=== PATIENT | male | born 1975 | race Caucasian/White ===

== ENCOUNTER 2016-12-07 08:29 | Emergency (ER) | payer BC, OTHER ==
[2016-12-07 08:56] VITALS: BP 127/85
[2016-12-07] MEDS ORDERED: Lidocaine/EPINEPHrine/Tetracaine Soln 1 ML TOP STA (09:39)
[2016-12-07] MEDS ORDERED: Lidocaine 1% with EPINEPHrine 1:100,000 20 ML MDV INJECT ONE (09:39)
[2016-12-07] MEDS ORDERED: Bupivacaine 0.5% 10 ML SDV INJECT ONE (09:40)
[2016-12-07] MEDS ORDERED: Diphtheria,Pertussis(Acell),Tetanus Vaccine 0.5 ML SDV IM ONE (09:40)
--- NOTE | 2016-12-07 10:21 | EDM.PDOC ---
ED HPI GENERAL MEDICAL PROBLEM - General Chief Complaint: Laceration Stated Complaint: LT ARM LAC Time Seen by Provider: 12/07/16 09:28 Source of Information: Reports: Patient, RN Notes Reviewed History Limitations: Reports: No Limitations - History of Present Illness INITIAL COMMENTS - FREE TEXT/NARRATIVE: The patient states that the edge of a piece of metal fell onto his left forearm while at work, around 08:30 this morning. He presents with an approximately 2.5 cm linear laceration to his mid-left forearm, over the radius, as well as an abrasion adjacent to it. He complains of pain and tenderness to this area. He is otherwise uninjured. The patient does not recall when his last tetanus vaccination was. The patient's PCP is Natalia Masterson. Left Arm Pain Score (Numeric/FACES): 7 - Related Data Allergies Allergy/AdvReac Type Severity Reaction Status Date / Time No Known Allergies Allergy Verified 12/07/16 08:45 Home Meds: Home Meds . [No Known Home Meds] 12/07/16 [History] Past Medical History Musculoskeletal History: Reports: Gout (suspected, not diagnosed) Psychiatric History: Reports: Depression - Past Surgical History HEENT Surgical History: Reports: Tonsillectomy Social & Family History - Tobacco Use Smoking Status *Q: Never Smoker - Caffeine Use Caffeine Use: Reports: Coffee - Alcohol Use Alcohol Use History: Yes Alcohol Use Frequency: Socially - Recreational Drug Use Recreational Drug Use: No - Living Situation & Occupation Living situation: Reports: , with Family, Other (friends) Occupation: Employed (Records Section Supervisor) ED ROS GENERAL - Review of Systems Review Of Systems: See Below Constitutional: Reports: No Symptoms HEENT: Reports: No Symptoms Respiratory: Reports: No Symptoms Cardiovascular: Reports: No Symptoms Endocrine: Reports: No Symptoms GI/Abdominal: Reports: No Symptoms : Reports: No Symptoms Musculoskeletal: Reports: No Symptoms Skin: Reports: No Symptoms Neurological: Reports: No Symptoms Psychiatric: Reports: No Symptoms Hematologic/Lymphatic: Reports: No Symptoms Immunologic: Reports: No Symptoms ED EXAM, SKIN/RASH Exam: See Below Exam Limited By: No Limitations General Appearance: Alert, WD/WN, No Apparent Distress Extremities: Normal Range of Motion, Normal Capillary Refill, Other ( Approximately 2.5 cm linear laceration to the mid-left forearm, over the radius , with an adjacent abrasion. Minimal swelling to the area. No visible ecchymosis. Neurovascular status of the left upper extremity is intact.) Psychiatric: Normal Affect Skin: Warm, Dry, Normal Color, No Rash ED SKIN PROCEDURES - Laceration/Wound Repair Left Arm Lac/Wound length In cm: 2.5 Appearance: Subcutaneous, Linear, Clean Distal NVT: Neuro & Vascular Intact, No Tendon Injury Anesthetic Type: Topical (LET) Skin Prep: Providone-Iodine (Betadine) Exploration/Debridement/Repair: Wound Explored, In a Bloodless Field, Explored to Base, No Foreign Material Found, Wound Margins Revised Closed with: Sutures Suture Size: 3-0 # of Sutures: 6 Suture Type: Nylon, Running, Simple Sterile Dressing Applied: None Tetanus Status Addressed: Yes Complications: No Course - Vital Signs Last Recorded V/S: Last Vital Signs Temp 35.7 C 12/07/16 08:46 Pulse 64 12/07/16 08:46 Resp 18 12/07/16 08:46 BP 127/85 12/07/16 08:46 Pulse Ox 98 12/07/16 08:46 - Orders/Labs/Meds Orders: Active Orders 24 hr Category Date Time Status Vaccines to be Administered [RC] PER UNIT ROUTINE Care 12/07/16 09:40 Active Meds: Medications Discontinued Medications Generic Name Dose Route Start Last Admin Trade Name Annie PRN Reason Stop Dose Admin Bupivacaine HCl 10 ml 12/07/16 09:40 12/07/16 13:50 Sensorcaine-Mpf 0.5% INJECT 12/07/16 09:41 Not Given ONETIME ONE Diphtheria/Tetanus/Acell Pertussis 0.5 ml 12/07/16 09:40 12/07/16 09:50 Adacel IM 12/07/16 09:41 0.5 ml .ONCE ONE Administration Lidocaine/Epinephrine 20 ml 12/07/16 09:39 12/07/16 13:50 Xylocaine 1% With Epinephrine 1:100,000 INJECT 12/07/16 09:40 Not Given ONETIME ONE Lidocaine/Tetracaine 2 ml 12/07/16 09:39 12/07/16 09:49 Let Soln TOP 12/07/16 09:40 2 ml ONETIME STA Administration - Re-Assessments/Exams Free Text/Narrative Re-Assessment/Exam: 12/07/16 10:19 2-view radiographs of the left forearm appear to be unremarkable. No fracture or dislocation identified. Formal read per the Radiologist pending. 12/07/16 13:23 The patient's wound was closed with 6 running sutures. He was given a tetanus vaccination. Departure - Departure Time of Disposition: 13:23 Disposition: Home, Self-Care 01 Condition: Good Clinical Impression: Laceration of left forearm, Contusion of left forearm - Discharge Information Instructions: Laceration Care, Adult, Contusion, [id number] Referrals: Janae Masterson, SCALP TREATMENT OPERATOR [Primary Care Provider] - Forms: ED Department Discharge Additional Instructions: You were seen in the emergency room after suffering a laceration and contusion to her left forearm, when a piece of metal fell on it at work this morning. Workup in the ER included x-rays of your left forearm. No broken bones or other bony injuries were seen. Your laceration was closed with 6 sutures. Keep the wound clean with ordinary soap and water. The wound can get wet, but you should not soak the wound, as with swimming. Take [id number] Tylenol or ibuprofen as needed for discomfort. An ice pack may help, as well. The sutures should be ready for removal by 11/13/2016. This can be done at a walk-in clinic, by a nurse at your doctor's office, or back in the ER. If any other problems, please do not hesitate to return to the ER. - My Orders Last 24 Hours: My Active Orders 12/07/16 09:40 Vaccines to be Administered [RC] PER UNIT ROUTINE - Assessment/Plan Last 24 Hours: My Active Orders 12/07/16 09:40 Vaccines to be Administered [RC] PER UNIT ROUTINE
--- NOTE | 2016-12-07 11:27 | CR ---
Left forearm: Two views of the left forearm were obtained. Comparison: No previous study. Small metallic foreign body projected within the medial wrist. Joint spaces within the wrist are maintained. Soft tissue swelling is noted. No acute fracture is seen. Impression: 1. Small metallic foreign body is projected within the medial left wrist. 2. Soft tissue swelling. 3. No acute bony abnormality is identified. Diagnostic code #3
== END 2016-12-07 13:45 | disposition home or self-care (01) ==
LOC: JD.ED 08:29
DX: S51.812A Laceration without foreign body of left forearm, initial encounter (principal); S50.12XA Contusion of left forearm, initial encounter; F32.9 Major depressive disorder, single episode, unspecified; Z98.890 Other specified postprocedural states; W26.8XXA Contact with other sharp object(s), not elsewhere classified, initial encounter; Y92.69 Other specified industrial and construction area as the place of occurrence of the external cause; Y99.0 Civilian activity done for income or pay
CPT/HCPCS: 12001; 73090; 90471; 90715; 99283; A9270

== ENCOUNTER 2019-01-29 13:53 | Emergency (ER) | payer BC ==
[2019-01-29 14:10] VITALS: BP 151/94; PULSE 81
[2019-01-29] MEDS ORDERED: Sodium Chloride 0.9% 10 ML Syringe FLUSH PRN (14:36)
[2019-01-29] MEDS ORDERED: Sodium Chloride 0.9% 1,000 ML IV SCH (14:45)
[2019-01-29] MEDS ORDERED: Gadobenate Dimeglumine 529 MG/ML 20 ML SDV IVPUSH ONE (14:59)
[2019-01-29] MEDS ORDERED: Sodium Chloride 0.9% 10 ML Syringe FLUSH SCH (15:00)
--- NOTE | 2019-01-29 16:12 | EDM.PDOC ---
ED HPI GENERAL MEDICAL PROBLEM - General Chief Complaint: Neuro Symptoms/Deficits Stated Complaint: NUMBNESS ON RIGHT SIDE OF BODY Time Seen by Provider: 01/29/19 14:14 Source of Information: Reports: Patient, RN Notes Reviewed - History of Present Illness INITIAL COMMENTS - FREE TEXT/NARRATIVE: 44 year old male had an episode of pain, numbness, tingling RLE clear down to his foot around 2 AM this past morning. He took some advil and eventually was able to get back to sleep. When he awakened around 10;30 AM he states his R face felt numb but also numbness of his R arm and also R facial pain and pain RUE as well. He feels like his R arm felt weak and heavy but was able to do normal functions. Now he feels better but still very mild R facial and arm numbness and discomfort. No chest pain or difficulty breathing. Mild to moderate throbbing R sided [place]. Headache Pain Score (Numeric/FACES): 5 - Related Data Allergies Allergy/AdvReac Type Severity Reaction Status Date / Time No Known Allergies Allergy Verified 01/29/19 14:10 Home Meds: Home Meds Venlafaxine [Effexor] 75 mg PO DAILY 01/29/19 [History] Past Medical History - Past Health History Medical/Surgical History: Denies Medical/Surgical History Musculoskeletal History: Reports: Gout Psychiatric History: Reports: Depression - Past Surgical History HEENT Surgical History: Reports: Tonsillectomy Social & Family History - Tobacco Use Smoking Status *Q: Never Smoker Second Hand Smoke Exposure: No - Caffeine Use Caffeine Use: Reports: Soda - Recreational Drug Use Recreational Drug Use: No - Living Situation & Occupation Living situation: Reports: , with Family, Other (friends) Occupation: Employed ([employer]ator) ED ROS GENERAL - Review of Systems Review Of Systems: See Below Constitutional: Denies: Fever, Chills, Diaphoresis HEENT: Denies: Ear Pain, Sinus Problem, Throat Pain, Vertigo, Vision Change Respiratory: Denies: Shortness of Breath Cardiovascular: Denies: Chest Pain GI/Abdominal: Denies: Abdominal Pain, Nausea, Vomiting Musculoskeletal: Reports: Arm Pain, Leg Pain. Denies: Neck Pain Skin: Reports: No Symptoms Neurological: Reports: Numbness, Tingling, Weakness (mild, now gone) ED EXAM, NEURO - Physical Exam Exam: See Below General Appearance: Alert, No Apparent Distress Eye Exam: Bilateral Eye: PERRL Throat/Mouth: Normal Inspection, Normal Oropharynx Head Exam: Atraumatic. No: Facial Swelling Neck: Supple, Full Range of Motion. No: Lymphadenopathy (L), Lymphadenopathy (R ) Respiratory/Chest: No Respiratory Distress, Lungs Clear, Normal Breath Sounds Cardiovascular: Regular Rate, Rhythm GI/Abdominal: Soft, Non-Tender Neurological: Alert, No Motor/Sensory Deficits, Other (finger to nose testing normal) Back Exam: No: CVA Tenderness (L), CVA Tenderness (R), Paraspinal Tenderness, Vertebral Tenderness Extremities: Normal Inspection, Normal Range of Motion Skin Exam: Warm, Dry, Normal Color, No Rash EKG INTERPRETATION Rhythm: NSR [place]: Normal P-Wave: Present QRS: Normal ST-T: Other (t wave inversion lead III) QT: Normal Course - Vital Signs Last Recorded V/S: Last Vital Signs Temp 97.1 F 01/29/19 14:09 Pulse 81 01/29/19 14:09 Resp 20 01/29/19 14:09 BP 151/94 H 01/29/19 14:09 Pulse Ox 94 L 01/29/19 14:09 - Orders/Labs/Meds Labs: Laboratory Tests 01/29/19 01/29/19 Range/Units 14:50 14:50 WBC 9.95 H (4.23-9.07) K/mm3 RBC 5.22 (4.63-6.08) M/mm3 Hgb 15.4 (13.7-17.5) gm/dl Hct 45.2 (40.1-51.0) % MCV 86.6 (79.0-92.2) fl MCH 29.5 (25.7-32.2) pg MCHC 34.1 (32.2-35.5) g/dl RDW Std Deviation 42.7 (35.1-43.9) fL Plt Count 304 (163-337) K/mm3 MPV 10.3 (9.4-12.3) fl Neut % (Auto) 59.3 (34.0-67.9) % Lymph % (Auto) 27.7 (21.8-53.1) % [place] % (Auto) 8.7 (5.3-12.2) % Eos % (Auto) 3.6 (0.8-7.0) Baso % (Auto) 0.7 (0.1-1.2) % Neut # (Auto) 5.89 H (1.78-5.38) K/mm3 Lymph # (Auto) 2.76 (1.32-3.57) K/mm3 [place] # (Auto) 0.87 H (0.30-0.82) K/mm3 Eos # (Auto) 0.36 (0.04-0.54) K/mm3 Baso # (Auto) 0.07 (0.01-0.08) K/mm3 Sodium 140 (136-145) mEq/L Potassium 3.6 (3.5-5.1) mEq/L Chloride 103 (98-107) mEq/L Carbon Dioxide 29 (21-32) mEq/L Anion Gap 11.6 (5-15) BUN 15 (7-18) mg/dL Creatinine 1.2 (0.7-1.3) mg/dL Est Cr Clr Drug Dosing 83.67 mL/min Estimated GFR (MDRD) > 60 (>60) mL/min BUN/Creatinine Ratio 12.5 L (14-18) Glucose 118 H (74-106) mg/dL Calcium 9.3 (8.5-10.1) mg/dL Total Bilirubin 0.8 (0.2-1.0) mg/dL AST 22 (15-37) U/L ALT 56 (16-63) U/L Alkaline Phosphatase 62 (46-116) U/L Total Protein 8.2 (6.4-8.2) g/dl Albumin 3.8 (3.4-5.0) g/dl Globulin 4.4 gm/dL Albumin/Globulin Ratio 0.9 L (1-2) Meds: Medications Discontinued Medications Generic Name Dose Route Start Last Admin Trade Name Freq PRN Reason Stop Dose Admin Gadobenate Dimeglumine 20 ml 01/29/19 14:59 01/29/19 15:44 Multihance IVPUSH 01/29/19 15:00 20 ml ONETIME ONE Administration Sodium Chloride 1,000 mls @ 150 mls/hr 01/29/19 14:45 01/29/19 15:49 Normal Saline IV 150 mls/hr ASDIRECTED EDOMND Administration Ondansetron HCl 4 mg 01/29/19 17:42 01/29/19 18:35 Zofran IVPUSH 01/29/19 17:43 Not Given ONETIME ONE Sodium Chloride 10 ml 01/29/19 14:36 01/29/19 14:53 Saline Flush FLUSH 10 ml ASDIRECTED PRN Administration Keep Vein Open Sodium Chloride 30 ml 01/29/19 15:00 01/29/19 15:44 Saline Flush FLUSH 30 ml ASDIRECTED EDMOND Administration - Re-Assessments/Exams Free Text/Narrative Re-Assessment/Exam: 01/31/19 12:55 EKK, labs normal. We were able to MRI of head and neck all of which came back normal. Patient doing better at time of discharge with sx mostly resolved. Departure - Departure Time of Disposition: 17:30 Disposition: Home, Self-Care 01 Condition: Fair Clinical Impression: Paresthesias, Cervical radiculopathy - Discharge Information Instructions: Cervical Radiculopathy, [id number] Referrals: Kody Richter Jr, MD [Primary Care Provider] - Forms: ED Department Discharge Additional Instructions: rest, continue current medication, you may alternate tylenol and ibuprofen or aleve as needed for discomfort. See Dr Richter as planned. Return to ED as needed if symptoms worsening in any way.
--- NOTE | 2019-01-29 16:20 | MR ---
MRI angiogram of neck Technique: Postcontrast MR angiogram of the neck was obtained. Multiple MIP images were obtained. Comparison: No prior neck imaging. Findings: Both vertebral arteries are opacified and appear patent. Common carotid arteries show no stenosis. Internal carotid artery show no stenosis. Impression: 1. No evidence of stenosis within the common carotid arteries, vertebral or internal carotid arteries. Diagnostic code #1
--- NOTE | 2019-01-29 16:38 | MR ---
MRI brain Technique: T1 sagittal; T2, T2 FLAIR, T1 and diffusion axial; T1 coronal and post gadolinium T1 axial and post gadolinium coronal images were obtained. Comparison: No previous study. Findings: Slight areas of mucosal thickening are noted within the right mastoid sinus. Normal signal void is seen within the major cerebral arteries within the skull base. Ventricles along with basal cisterns and sulci over the convexities are within normal limits for the patient's age. No abnormal signal is seen within the brain parenchyma. No midline shift or mass effect is seen. No acute diffusion abnormalities are seen. No abnormal enhancement is identified. Paranasal sinuses are clear. Impression: 1. Slight mucosal thickening throughout the right mastoid sinus which is most likely incidental. 2. No acute intracranial abnormality is appreciated on MRI study of the brain. Diagnostic code #2
[2019-01-29] MEDS ORDERED: Ondansetron 4 MG/2 ML SDV IVPUSH ONE (17:42)
--- NOTE | 2019-01-29 18:23 | MR ---
MR angiogram of brain Technique: [id number] MR angiogram sequence was obtained with multiple MIP images obtained in multiple projections. Findings: Basilar artery and distal internal carotid arteries are patent. Anterior cerebral arteries appear within normal limits. Middle cerebral artery shows no focal stenosis. Posterior cerebral arteries also appear without focal stenosis. No discrete aneurysm is seen. Impression: 1. No abnormality is seen on MR angiogram study centered to the [place]. Diagnostic code #1
== END 2019-01-29 17:48 | disposition home or self-care (01) ==
LOC: JD.ED 13:53
DX: M54.12 Radiculopathy, cervical region (principal); R20.2 Paresthesia of skin; F32.9 Major depressive disorder, single episode, unspecified; Z79.899 Other long term (current) drug therapy
CPT/HCPCS: 36415; 70544; 70548; 70553; 80053; 85025; 93005; 96360; 96361; 99284; A9577; J7040; 93010

== ENCOUNTER 2020-01-16 08:53 | Emergency (ER) | payer BC ==
--- NOTE | 2020-01-16 09:07 | EDM.PDOC ---
ED HPI GENERAL MEDICAL PROBLEM - General Chief Complaint: Respiratory Problem Stated Complaint: FLUID IN LUNGS SENT BY CLINIC Time Seen by Provider: 01/16/20 09:06 - History of Present Illness INITIAL COMMENTS - FREE TEXT/NARRATIVE: 45-year-old male presents the emergency room with a chief complaint of fluid in his lungs. Patient was sent over from the walk-in clinic after a chest x-ray showed infiltrates. He was also hypoxic. He arrived here at 85% on room air was put on 2 L and feels much better saturating in the mid 90s at this point. Patient has been coughing for the last 4 to 5 days. He has had fevers and he has been achy. He is not aware of any loss of loss of taste or smell. Patient denies any significant past medical history other than depression and gout. Chest Pain Score (Numeric/FACES): 4 - Related Data Allergies Allergy/AdvReac Type Severity Reaction Status Date / Time No Known Allergies Allergy Verified 01/16/20 09:06 Home Meds: Home Meds Venlafaxine [Effexor] 75 mg PO DAILY 01/29/19 [History] Allopurinol [Zyloprim] 300 mg PO DAILY 01/16/20 [History] Doxycycline Hyclate 100 mg PO BID #14 capsule 01/16/20 [Rx] Past Medical History - Past Health History Medical/Surgical History: Denies Medical/Surgical History Musculoskeletal History: Reports: Gout Psychiatric History: Reports: Depression - Past Surgical History HEENT Surgical History: Reports: Tonsillectomy Social & Family History - Caffeine Use Caffeine Use: Reports: Soda - Living Situation & Occupation Living situation: Reports: , with Family, Other (friends) Occupation: Employed (Transportation Security Officer) ED ROS GENERAL - Review of Systems Review Of Systems: See Below Constitutional: Reports: Fever HEENT: Reports: No Symptoms Respiratory: Reports: Shortness of Breath, Cough. Denies: Sputum Cardiovascular: Reports: No Symptoms GI/Abdominal: Reports: Other (Otitis slightly decreased otherwise he is taking fluids without difficulty) : Reports: No Symptoms Musculoskeletal: Reports: Other (Generalized achiness) Skin: Reports: No Symptoms Neurological: Reports: No Symptoms Psychiatric: Reports: No Symptoms Hematologic/Lymphatic: Reports: No Symptoms ED EXAM, GENERAL - Physical Exam Exam: See Below Exam Limited By: No Limitations General Appearance: Alert, No Apparent Distress, Other Eye Exam: Bilateral Eye: Normal Inspection Ears: Normal External Exam, Normal Canal, Hearing Grossly Normal, Normal TMs Nose: Normal Inspection, Normal Mucosa, No Blood Throat/Mouth: Normal Inspection, Normal Lips, Normal Teeth, Normal Gums, Normal Oropharynx, Normal Voice, No Airway Compromise Head: Atraumatic, Normocephalic Neck: Normal Inspection, Supple, Non-Tender, Full Range of Motion Respiratory/Chest: No Respiratory Distress, Lungs Clear, Decreased Breath Sounds. No: Crackles, Rales, Rhonchi, Wheezing Cardiovascular: Regular Rate, Rhythm, No Edema, No Murmur GI/Abdominal: Normal Bowel Sounds, Soft, Non-Tender Back Exam: Normal Inspection. No: CVA Tenderness (L), CVA Tenderness (R) Extremities: Normal Inspection, No Pedal Edema Neurological: Alert, Oriented, Normal Cognition Course - Vital Signs Last Recorded V/S: Last Vital Signs Temp 36.4 C 01/16/20 09:12 Pulse 105 H 01/16/20 09:12 Resp 26 H 01/16/20 09:12 BP 135/86 01/16/20 09:12 Pulse Ox 85 L 01/16/20 09:12 - Orders/Labs/Meds Orders: Active Orders 24 hr Category Date Time Status CORONAVIRUS COVID-19 PCR PHL Stat Lab 01/16/20 11:44 Ordered Labs: Laboratory Tests 01/16/20 01/16/20 01/16/20 Range/Units 10:31 10:31 10:31 WBC 10.76 H (4.23-9.07) K/mm3 RBC 4.75 (4.63-6.08) M/mm3 Hgb 13.7 D (13.7-17.5) gm/dl Hct 42.3 (40.1-51.0) % MCV 89.1 (79.0-92.2) fl MCH 28.8 (25.7-32.2) pg MCHC 32.4 (32.2-35.5) g/dl RDW Std Deviation 46.1 H (35.1-43.9) fL Plt Count 366 H (163-337) K/mm3 MPV 10.2 (9.4-12.3) fl Neutrophils % (Manual) 86 H (40-60) % Band Neutrophils % 0 (0-10) % Lymphocytes % (Manual) 14 L (20-40) % Atypical Lymphs % 0 % Monocytes % (Manual) 0 L (2-10) % Eosinophils % (Manual) 0 L (0.8-7.0) % Basophils % (Manual) 0 L (0.2-1.2) Platelet Estimate Adequate RBC Morph Comment Normal D-Dimer, Quantitative 0.60 H (0.19-0.50) mg/L Sodium 137 (136-145) mEq/L Potassium 3.7 (3.5-5.1) mEq/L Chloride 99 (98-107) mEq/L Carbon Dioxide 28 (21-32) mEq/L Anion Gap 13.7 (5-15) BUN 13 (7-18) mg/dL Creatinine 1.3 (0.7-1.3) mg/dL Est Cr Clr Drug Dosing 76.43 mL/min Estimated GFR (MDRD) 60 (>60) mL/min BUN/Creatinine Ratio 10.0 L (14-18) Glucose 157 H (74-106) mg/dL Calcium 8.4 L (8.5-10.1) mg/dL Ferritin (26-388) ng/ml Total Bilirubin 0.7 (0.2-1.0) mg/dL AST 66 H (15-37) U/L ALT 72 H (16-63) U/L Alkaline Phosphatase 74 (46-116) U/L Lactate Dehydrogenase 368 H (85-227) U/L C-Reactive Protein 20.2 H* (<1.0) mg/dL Total Protein 7.5 (6.4-8.2) g/dl Albumin 2.6 L (3.4-5.0) g/dl Globulin 4.9 gm/dL Albumin/Globulin Ratio 0.5 L (1-2) 01/16/20 Range/Units 10:31 WBC (4.23-9.07) K/mm3 RBC (4.63-6.08) M/mm3 Hgb (13.7-17.5) gm/dl Hct (40.1-51.0) % MCV (79.0-92.2) fl MCH (25.7-32.2) pg MCHC (32.2-35.5) g/dl RDW Std Deviation (35.1-43.9) fL Plt Count (163-337) K/mm3 MPV (9.4-12.3) fl Neutrophils % (Manual) (40-60) % Band Neutrophils % (0-10) % Lymphocytes % (Manual) (20-40) % Atypical Lymphs % % Monocytes % (Manual) (2-10) % Eosinophils % (Manual) (0.8-7.0) % Basophils % (Manual) (0.2-1.2) Platelet Estimate RBC Morph Comment D-Dimer, Quantitative (0.19-0.50) mg/L Sodium (136-145) mEq/L Potassium (3.5-5.1) mEq/L Chloride (98-107) mEq/L Carbon Dioxide (21-32) mEq/L Anion Gap (5-15) BUN (7-18) mg/dL Creatinine (0.7-1.3) mg/dL Est Cr Clr Drug Dosing mL/min Estimated GFR (MDRD) (>60) mL/min BUN/Creatinine Ratio (14-18) Glucose (74-106) mg/dL Calcium (8.5-10.1) mg/dL Ferritin 1707 H (26-388) ng/ml Total Bilirubin (0.2-1.0) mg/dL AST (15-37) U/L ALT (16-63) U/L Alkaline Phosphatase (46-116) U/L Lactate Dehydrogenase (85-227) U/L C-Reactive Protein (<1.0) mg/dL Total Protein (6.4-8.2) g/dl Albumin (3.4-5.0) g/dl Globulin gm/dL Albumin/Globulin Ratio (1-2) - Re-Assessments/Exams Free Text/Narrative Re-Assessment/Exam: 01/16/20 09:59 Was able to access his chest x-ray and he has bilateral mostly peripheral infiltrates lightly worse on the right. 01/16/20 11:46 His labs are still somewhat suggestive of COVID still waiting on his differential on his CBC and his ferritin. Chest x-ray is suggestive of a COVID type pattern. His d-dimer is slightly elevated at 0.6. I did discuss the findings of this with the patient the patient would like to hold off on a CT for now as he is not having any chest pain. He has a cough. We will send a COVID to the state lab. Early in the patient's course I discussed discharge situation with him he is obviously getting need oxygen but he is satting very well on 2 L. He understands that there is no beds available in [place] and they are very hard to find throughout the [facility] and he would like to try outpatient treatment if at all possible. 01/16/20 12:55 The patient continues to do well on oxygen we will discharge him on oxygen his white count is up just a little bit he is got a relative lymphopenia no bandemia but the neutrophils are up a little. I will start him on doxycycline but I believe he probably has underlying COVID. COVID testing will be sent to the state lab. I discussed the treatment plan with the patient and he agrees and he agrees to return to the emergency room with any questions problems or worsening symptoms. Departure - Departure Time of Disposition: 12:59 Disposition: Home, Self-Care 01 Clinical Impression: COVID-19 determined by clinical diagnostic criteria - Discharge Information Referrals: Kody Richter Jr, MD [Primary Care Provider] - Forms: ED Department Discharge Additional Instructions: Return to the emergency room with any questions problems or worsening symptoms. Your clinical situation is consistent with COVID however I cannot exclude a bacterial cause of the pneumonia. Therefore you will be started on an antibiotic. As we discussed use the oxygen therapy continuously as long as it is needed. If you are need for the oxygen seems to increase then you need to be reevaluated. You have been started on doxycycline, this is an antibiotic, take 1 twice daily until all gone. You have a COVID test pending we should have the results back in a couple of days. Sepsis Event Note (ED) - Focused Exam Vital Signs: Vital Signs Temp Pulse Resp BP Pulse Ox 01/16/20 09:12 36.4 C 105 H 26 H 135/86 85 L - My Orders Last 24 Hours: My Active Orders 01/16/20 11:44 CORONAVIRUS COVID-19 PCR PHL Stat - Assessment/Plan Last 24 Hours: My Active Orders 01/16/20 11:44 CORONAVIRUS COVID-19 PCR PHL Stat
[2020-01-16 09:16] VITALS: BP 135/86; PULSE 105
== END 2020-01-16 13:38 | disposition home or self-care (01) ==
LOC: JD.ED 08:53
DX: U07.1 COVID-19 (principal); M10.9 Gout, unspecified; F32.9 Major depressive disorder, single episode, unspecified; Z79.899 Other long term (current) drug therapy
CPT/HCPCS: 36415; 80053; 82728; 83615; 85007; 85027; 85379; 86140; 99284; U0002